=== PATIENT | male | born 1975 | race Caucasian/White ===

== ENCOUNTER 2025-02-06 08:38 | Emergency (ER) | payer OTHER | END 2025-02-06 10:10 | disposition home or self-care (01) | LOC: JD.ED 08:38 | DX: S67.191A Crushing injury of left index finger, initial encounter (principal); S62.661A Nondisplaced fracture of distal phalanx of left index finger, initial encounter for closed fracture; I10 Essential (primary) hypertension; Z79.899 Other long term (current) drug therapy; W23.1XXA Caught, crushed, jammed, or pinched between stationary objects, initial encounter; Y93.89 Activity, other specified | CPT/HCPCS: 29125; 73140-26-F1; 73140-F1; 99283 ==